=== PATIENT | male | born 1960 | race Caucasian/White ===

== ENCOUNTER 2020-11-25 10:30 | Outpatient (REF) | payer MEDICAID, SELFPAY ==
[2020-11-25 15:04] LABS: HCT 44.8 % (40.0-50.0); HGB 14.2 g/dL (13.5-17.5); MCH 28.3 pg (27.0-33.0); MCHC 31.7 % (32.0-36.0); MCV 89.4 fL (80-95); MPV 8.9 fL (8.0-11.0); Platelet Count 432 10^3/uL (130-400); RBC 5.01 10^6/uL (4.36-5.78); RDW 12.8 % (11.8-14.1); RDW-SD 42.4 fL; WBC 9.59 10^3/uL (4.4-10.8)
[2020-11-25 15:21] LABS: ALT 25 U/L (16-63); AST 12 U/L (15-37); Albumin 3.4 g/dL (3.4-5.0); Alkaline Phosphatase 72 U/L (46-116); Anion Gap 10.4 mmol/L (3-11); BUN 23 mg/dL (7-18); Bilirubin, Total 0.3 mg/dL (0.2-1.0); C-Reactive Protein 3.51 mg/dL (0.0-0.3); CO2 26.6 mmol/L (21.0-32.0); Calcium 9.7 mg/dL (8.5-10.1); Chloride 102 mmol/L (98-107); Glucose 172 mg/dL (74-106); Potassium 4.6 mmol/L (3.5-5.1); Sodium 139 mmol/L (136-145); Total Protein 7.2 g/dL (6.4-8.2)
[2020-11-25 15:35] LABS: ESR 60 mm//hr (0-20)
== END 2020-11-25 10:31 | disposition home or self-care (01) ==
LOC: LBN 10:30
PROVIDERS: Visit Provider Physician Assistant
DX: M60.88 Other myositis, other site (principal); M79.18 Myalgia, other site
CPT/HCPCS: 80053; 85027; 85652; 86140

== ENCOUNTER 2020-12-23 18:38 | Outpatient (REF) | payer MEDICAID, SELFPAY ==
[2020-12-23 19:23] LABS: ESR 7 mm//hr (0-20)
== END 2020-12-23 18:39 | disposition home or self-care (01) ==
LOC: NCHCN 18:38
PROVIDERS: Visit Provider Physician Assistant
DX: M60.9 Myositis, unspecified (principal)
CPT/HCPCS: 85652

== ENCOUNTER 2021-12-15 16:25 | Outpatient (REF) | payer MEDICAID, SELFPAY ==
[2021-12-15 18:15] LABS: ESR 11 mm/hr (0-20)
[2021-12-15 18:27] LABS: Anion Gap 6.7 mmol/L (3-11); BUN 20 mg/dL (7-18); CO2 28.3 mmol/L (21.0-32.0); CREATININE 1.1 mg/dL (0.70-1.30); Calcium 9.1 mg/dL (8.5-10.1); Calculated LDL 125 mg/dL (<100); Chloride 104 mmol/L (98-107); Cholesterol 212 mg/dL (<200); Glucose 160 mg/dL (74-106); HDL Cholesterol 53 mg/dL (40-60); Potassium 4.8 mmol/L (3.5-5.1); Sodium 139 mmol/L (136-145); Triglyceride 173 mg/dL (<150)
[2021-12-15 18:39] LABS: COMMENT (LAB VIEW ONLY) 193.93 mg/dL; Microalb ug/mg Crea 3.7 ug/mg Cr
[2021-12-15 19:03] LABS: Hemoglobin A1C 7.8 % (<5.7)
== END 2021-12-15 16:26 | disposition home or self-care (01) ==
LOC: NCHCN 16:25
PROVIDERS: Visit Provider Physician Assistant
DX: M35.3 Polymyalgia rheumatica (principal); E11.9 Type 2 diabetes mellitus without complications
CPT/HCPCS: 80048; 80061; 85652; 82043; 82570; 83036